=== PATIENT | male | born 1960 | race Caucasian/White ===

== ENCOUNTER → 2018-07-03 11:32 | Outpatient (CLI) | payer OTHER, SELFPAY ==
[2018-07-03 12:37] LABS: PSA,Total - Annual Screen 1.26 ng/mL (0.00-4.00)
== END ==
PROVIDERS: Family Provider Internal Medicine; PCP Internal Medicine; Visit Provider Urology
DX: Z12.5 Encounter for screening for malignant neoplasm of prostate (principal)
CPT/HCPCS: 36415; 84153; G0103

== ENCOUNTER → 2019-07-22 08:34 | Outpatient (CLI) | payer OTHER, SELFPAY ==
[2017-01-25 08:07] VITALS: BMI 20.2
[2019-07-22 09:44] LABS: PSA,Total - Annual Screen 1.33 ng/mL (0.00-4.00)
== END ==
PROVIDERS: Family Provider Internal Medicine; PCP Internal Medicine; Referring Provider Urology; Visit Provider Urology
DX: Z12.5 Encounter for screening for malignant neoplasm of prostate (principal)
CPT/HCPCS: 36415; 84153; G0103

== ENCOUNTER → 2020-07-27 09:20 | Outpatient (CLI) | payer OTHER, SELFPAY ==
[2020-07-27 10:27] LABS: PSA,Total - Annual Screen 1.36 ng/mL (0.00-4.00)
== END ==
PROVIDERS: PCP Internal Medicine; Referring Provider Urology; Visit Provider Urology
DX: Z12.5 Encounter for screening for malignant neoplasm of prostate (principal)
CPT/HCPCS: 36415; 84153; G0103

== ENCOUNTER → 2023-12-12 | Outpatient (CLI) | payer MEDICARE, SELFPAY ==
--- NOTE | 2023-12-12 12:02 | EKG12_ITS ---
Test Reason : PRE OP Blood Pressure : / mmHG Vent. Rate : 075 BPM Atrial Rate : 075 BPM P-R Int : 116 ms QRS Dur : 072 ms QT Int : 362 ms P-R-T Axes : 049 065 040 degrees QTc Int : 404 ms Normal sinus rhythm Normal ECG Confirmed by Mikael Pérez ([id number]), editorial director JEANNINE KIRK ([id number]) on 12/13/2023 8:07:52 AM Referred By: Mikael Shukla Confirmed By:Mikael Pérez
--- OUTSIDE RECORDS SUMMARY | 2023-12-12 12:19 | XMS RPT_ITS | CCD ---
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 0 11/15/2021 Active Problems Problem Classification Problem Date Documented Da te Episodic/Chronic Other skin disorders (1 source) Actinic keratosis; Translations: [Actinic keratosis] Onset: 11-06-2013 01-31-2017 Episodic Other skin disorders (1 source) Seborrheic keratosis; Translations: [Other seborrheic keratosis] Onset: 11-06-2013 11-06-2013 Episodic Encounters Encounter Date Encounter Type Care Provider Facility Start: 08-04-2023 End: 08-04-2023 ambulatory SCOTT FLORES Facility:[facility] Start: 08-04-2023 End: 08-04-2023 ambulatory Immunization [facility] Work Phone: [facility] Procedures Date Procedure Procedure Detail Performing Clinician Start: 08-04-2023 [employer] COVI D-19 VACCINE ( SEASON) AGE 12+ YR Allison Carvajal MD Work Phone: Start: 08-04-2023 INFLUENZA VACCINE, P RSV FREE, AGE 65+ YR, HIGH DOSE, QUADRIVALENT (FLUZONE HIGH-DOSE) Allison Carvajal MD Work Phone: Start: 10-18-2021 Lipid 1996 panel - S [place] or Plasma Immunization [facility] Work Phone: Start: 03-20-2018 Colonoscopy Immunizati on [facility] Work Phone: Plan of Treatment Date Care Activity Detail Author Start: 10-18-2031 Urine microalbumin profile DTa P,Tdap,Td Vaccine (3 - Td or Tdap) [facility] Start: 03-20-2028 Colonoscopy Colonoscopy [facility] Start: 03-20-2028 Colorectal Cancer Screening Colorectal Cancer Screening [facility] Start: 10-18-2026 Lipid 1996 panel - S [place] or Plasma Lipid Screening [facility] Start: 10-18-2026 Prostate Cancer Scre ening Discussion Prostate Cancer Screening Discussion [facility] Start: 10-18-2024 Diabetes Screening Diabetes Screenin g [facility] Start: 09-29-2023 Covid-19 Vaccine (4 - Moderna series) Covid-19 Vaccine (4 - Moderna series) [facility] Start: 2023 Advance Directive Discussion Advance Directive Discussion [facility] Start: 2023 Pneumococcal Vaccine : 65+ (2 - PCV) Pneumococcal Vaccine: 65+ (2 - PCV) [facility] Start: 10-30-2022 Depression Assessment Depression Ass essment [facility] Start: 11-21-2018 Fecal Occult Blood Fecal Occult Bloo d [facility] Start: 01-17-2008 Shingrix Vaccine (1 of 2) Shingrix V accine (1 of 2) [facility] Start: 2003 Cologuard (FIT-DNA) Cologuard (FIT-D NA) [facility] Start: [address] COLONOGRAPHY [facility] Start: 2003 SIGMOIDOSCOPY [facility] Start: 1960 Abdominal Aortic Ane urysm Screening Abdominal Aortic Aneurysm Screening [facility] Immunizations Immunization Date Immunization Notes Care Provider Nora montiel 08-04-2023 COVID-19 vaccine, ag e 12+ yr, season (PFIZER-BIONTECH) Immunization [facility] Work Phone: [facility] Work Phone: 08-04-2023 influenza (HD-IIV4) vaccine, age 65+ yr, high dose, quadrivalent, PF (FLUZONE HIGH-DOSE) Immunization [facility] Work Phone: [facility] Work Phone: 10-18-2021 tetanus toxoid, redu janay diphtheria toxoid, and acellular pertussis vaccine, adsorbed Immunization [facility] Work Phone: [facility] Work Phone: 07-12-2021 Seasonal, quadrivale nt, recombinant, injectable influenza vaccine, preservative free Immunization [facility] Work Phone: [facility] Work Phone: 07-28-2020 Seasonal, quadrivale nt, recombinant, injectable influenza vaccine, preservative free Immunization [facility] Work Phone: [facility] Work Phone: 07-25-2019 Seasonal, quadrivale nt, recombinant, injectable influenza vaccine, preservative free Immunization [facility] Work Phone: [facility] Work Phone: 07-17-2018 Influenza, injectabl e, Madin Mary D Canine Kidney, preservative free, quadrivalent Immunization [facility] Work Phone: [facility] Work Phone: 08-18-2017 influenza, injectabl e, quadrivalent, preservative free Immunization [facility] Work Phone: [facility] Work Phone: 01-31-2017 pneumococcal polysaccharide vaccine, 23 valent Immunization [facility] Work Phone: [facility] 08-10-2016 influenza, seasonal, injectable Immunization [facility] Work Phone: [facility] Work Phone: 06-03-2011 tetanus toxoid, redu janay diphtheria toxoid, and acellular pertussis vaccine, adsorbed Immunization [facility] Work Phone: [facility] Work Phone: Payers Date Payer Category Payer Medicare [employer] MEDICARE HU[employer] MEDICARE PPO [id number] 2022-Present [phone] [address] [address] [place] [address] PPO [id number] 2022 Medicare [id number] Social History Date Type Detail Facility Start: 11-20-2017 Tobacco smoking stat [facility] Ex-smoker [facility] Work Phone: Start: 10-30-1975 End: 10-30-1977 History of tobacco use Current smoker [facility] Work Phone: Start: 10-30-1975 End: 10-30-1977 History of tobacco use Cigarette Smoker [facility] Work Phone: Start: 11-20-2017 Tobacco use and exposure Smoke less tobacco non-user [facility] Work Phone: Start: 05-03-2022 Alcohol intake Current drinke r of alcohol (finding) [facility] Start: 05-03-2022 End: 08-04-2023 Alcohol intake [facility] Start: 10-14-2021 End: 08-04-2023 Social connection and isolation panel [facility] How often do you att end samaritan or congregation services? Patient refused [facility] Do you belong to any clubs or organizations such as samaritan groups, unions, fraternal or athletic groups, or school groups? No [facility] Are you now , , , , never or living with a partner? [facility] How often to you hav e a drink containing alcohol? 2-4 times a month [facility] How many standard dr inks containing alcohol do you have on a typical day? 1 or 2 [facility] How often do you hav e 6 or more drinks on 1 occasion? Never [facility] Do you feel stress - tense, restless, nervous, or anxious, or unable to sleep at night because your mind is troubled all the time - these days [OSQ] Only a little [facility] (I/We) worried valentin er (my/our) food would run out before (I/we) got money to buy more. Never true [facility] Start: 11-20-2017 Tobacco Comment 1 pack per year [facility] Start: 1960 Sex Assigned At Not on file [facility] Start: 10-14-2021 Sexual orientation Choose not to disclose [facility] History of Past illness Narrative 11-06-2013 Note Date & Type Note Facility documented as of this encounter (statuses as of 08/05/2023) [facility] Summary Purpose Family History No Family History Records Found Advance Directives No Advanced Directives Records Found Additional Source Comments Source Comments (unrecognize d section and content) In the event this informatio n is protected by the Federal Confidentiality of Alcohol and Drug Abuse Patient Records regulations: The Federal rules restrict any use of the information to criminally investigate or prosecute any alcohol or drug abuse patient.[facility] Care Teams (unrecognized sec tion and content) (unrecognized sect ion and content) No Status Records Found INFORMATION SOURCE (unrecogn ized section and content) FOR RECORDS PERTAINING TO PATIENTS WHO ARE OR HAVE BEEN ENROLLED IN A CHEMICAL DEPENDENCY/SUBSTANCEABUSE PROGRAM, SOME INFORMATION MAY BE OMITTED. This clinical summary was aggregated from multiple sources. Caution should be exercised in using it in the provision of clinical care. This summary normalizes information from multiple sources, and as a consequence, information in this document may materially change the coding, format and clinical context of patient data. In addition, data may be omitted in some cases. CLINICAL DECISIONS SHOULD BE BASED ON THE PRIMARY CLINICAL RECORDS. [employer] [facility] [facility]. provides no warranty or guarantee of the accuracy or completeness of information in this document.
[2023-12-12 13:34] LABS: Hematocrit 42.6 % (40-54); Hemoglobin 14.5 g/dL (13.0-16.5); Mean Corpuscular Hgb 30.4 pg (27.0-32.0); Mean Corpuscular Volume 89.3 fL (80-94); Mean Platelet Vol. 10.6 fl (6.2-12.0); Platelet Count 195 K/mm3 (150-450); RBC Distribution Width CV 13.2 % (11.6-14.6); RBC Distribution Width SD 43.1 fl (35.1-43.9); Red Blood Count 4.77 M/mm3 (4.6-6.2); White Blood Count 6.9 K/mm3 (4.4-11.0)
[2023-12-12 13:51] LABS: Anion Gap 5 (5-15); BUN 16 mg/dL (7-18); BUN/Creat Ratio 14.5 RATIO (10-20); Calcium,Total 8.7 mg/dL (8.5-10.1); Chloride 107 mmol/L (98-107); EST Glomerular Filtration Rate 71 mL/min (>60); Est Glom Filt Rate - Afr Amer 86 mL/min (>60); Glucose 179 mg/dL (74-106); Sodium Level 141 mmol/L (136-145)
== END | disposition home or self-care (01) ==
PROVIDERS: Physician Assistant; PCP Internal Medicine; Referring Provider Orthopaedic Surgery; Visit Provider Orthopaedic Surgery
DX: Z01.810 Encounter for preprocedural cardiovascular examination (principal)
CPT/HCPCS: 36415; 80048; 85027; 93005